=== PATIENT | male | born 1955 | race African-American/Black ===

== ENCOUNTER 2017-07-08 13:21 | Emergency (ER) | payer MEDICAID, OTHER ==
[2017-07-08] MEDS ORDERED: Furosemide 40 MG TAB ONE (14:51)
== END 2017-07-08 15:00 | disposition home or self-care (01) ==
LOC: MADERS 13:21
DX: E87.70 Fluid overload, unspecified (principal); I50.9 Heart failure, unspecified; I48.91 Unspecified atrial fibrillation; Z86.73 Personal history of transient ischemic attack (TIA), and cerebral infarction without residual deficits; Z79.899 Other long term (current) drug therapy; Z79.82 Long term (current) use of aspirin; Z79.01 Long term (current) use of anticoagulants
CPT/HCPCS: 99283

== ENCOUNTER 2017-11-05 09:20 | Outpatient (CLI) | payer OTHER ==
[2017-11-05 10:28] LABS: INR-International Normal Ratio 1.4; Prothrombin Time 17.5 SEC (12.0-14.7)
== END 2017-11-05 09:21 | disposition home or self-care (01) ==
LOC: MADLABBHPM 09:20
PROVIDERS: ATTEND Family Medicine
DX: Z51.81 Encounter for therapeutic drug level monitoring (principal); I48.2 Chronic atrial fibrillation; Z79.01 Long term (current) use of anticoagulants
CPT/HCPCS: 36415; 85610

== ENCOUNTER 2017-11-05 20:34 | Emergency (ER) | payer OTHER ==
[2017-11-05] MEDS ORDERED: Metoprolol Tartrate 50 MG TAB ONE (21:13)
== END 2017-11-05 21:17 | disposition home or self-care (01) ==
LOC: MADERS 20:34
DX: I11.0 Hypertensive heart disease with heart failure (principal); I50.9 Heart failure, unspecified; E78.5 Hyperlipidemia, unspecified; I48.91 Unspecified atrial fibrillation; E11.9 Type 2 diabetes mellitus without complications; Z79.82 Long term (current) use of aspirin; Z79.01 Long term (current) use of anticoagulants; Z79.899 Other long term (current) drug therapy; Z79.84 Long term (current) use of oral hypoglycemic drugs
CPT/HCPCS: 99283

== ENCOUNTER 2017-11-06 21:18 | Emergency (ER) | payer OTHER | END 2017-11-06 21:47 | disposition home or self-care (01) | LOC: MADERS 21:18 | DX: I11.0 Hypertensive heart disease with heart failure (principal); I50.9 Heart failure, unspecified; E78.5 Hyperlipidemia, unspecified; Z86.73 Personal history of transient ischemic attack (TIA), and cerebral infarction without residual deficits; I48.91 Unspecified atrial fibrillation; E11.9 Type 2 diabetes mellitus without complications; Z79.899 Other long term (current) drug therapy; Z79.01 Long term (current) use of anticoagulants; Z79.82 Long term (current) use of aspirin | CPT/HCPCS: 99283 ==

== ENCOUNTER 2017-11-13 08:39 | Outpatient (CLI) | payer OTHER ==
[2017-11-13 10:56] LABS: INR-International Normal Ratio 2.5; Prothrombin Time 28.1 SEC (12.0-14.7)
== END 2017-11-13 08:40 | disposition home or self-care (01) ==
LOC: MADLABBHPM 08:39
PROVIDERS: ATTEND Family Medicine
DX: Z51.81 Encounter for therapeutic drug level monitoring (principal); I48.2 Chronic atrial fibrillation; Z79.01 Long term (current) use of anticoagulants
CPT/HCPCS: 36415; 85610

== ENCOUNTER 2017-11-20 09:12 | Outpatient (CLI) | payer MEDICAID, OTHER ==
[2017-11-20 17:05] LABS: INR-International Normal Ratio 2.1; Prothrombin Time 24.2 SEC (12.0-14.7)
== END 2017-11-20 09:13 | disposition home or self-care (01) ==
LOC: MADLABBHPM 09:12
PROVIDERS: ATTEND Family Medicine
DX: Z51.81 Encounter for therapeutic drug level monitoring (principal); Z79.01 Long term (current) use of anticoagulants
CPT/HCPCS: 36415; 85610

== ENCOUNTER 2017-12-11 11:06 | Outpatient (CLI) | payer OTHER ==
[2017-12-11 12:05] LABS: INR-International Normal Ratio 2.6
== END 2017-12-11 11:07 | disposition home or self-care (01) ==
LOC: MADLABBHPM 11:06
PROVIDERS: ATTEND Family Medicine
DX: Z51.81 Encounter for therapeutic drug level monitoring (principal); I48.2 Chronic atrial fibrillation; Z79.01 Long term (current) use of anticoagulants
CPT/HCPCS: 36415; 85610

== ENCOUNTER 2018-01-15 08:13 | Outpatient (CLI) | payer OTHER ==
[2018-01-15 08:34] LABS: INR-International Normal Ratio 2.6; Prothrombin Time 28.1 SEC (12.0-14.7)
== END 2018-01-15 08:14 | disposition home or self-care (01) ==
LOC: MADLABBHPM 08:13
PROVIDERS: ATTEND Family Medicine
DX: Z51.81 Encounter for therapeutic drug level monitoring (principal); I48.2 Chronic atrial fibrillation; Z79.01 Long term (current) use of anticoagulants
CPT/HCPCS: 36415; 85610

== ENCOUNTER 2018-02-01 08:19 | Outpatient (CLI) | payer OTHER ==
[2018-02-01 08:51] LABS: INR-International Normal Ratio 2.6; Prothrombin Time 27.9 SEC (12.0-14.7)
== END 2018-02-01 08:20 | disposition home or self-care (01) ==
LOC: MADLAB 08:19
PROVIDERS: ATTEND Family Medicine
DX: Z51.81 Encounter for therapeutic drug level monitoring (principal); I48.2 Chronic atrial fibrillation; Z79.01 Long term (current) use of anticoagulants
CPT/HCPCS: 36415; 85610

== ENCOUNTER 2018-02-20 14:20 | Outpatient (CLI) | payer OTHER ==
[2018-02-20 14:53] LABS: INR-International Normal Ratio 1.9; Prothrombin Time 22.1 SEC (12.0-14.7)
== END 2018-02-20 14:21 | disposition home or self-care (01) ==
LOC: MADLAB 14:20
PROVIDERS: ATTEND Family Medicine
DX: Z51.81 Encounter for therapeutic drug level monitoring (principal); I46.2 Cardiac arrest due to underlying cardiac condition; Z79.01 Long term (current) use of anticoagulants
CPT/HCPCS: 36415; 85610

== ENCOUNTER 2018-03-14 12:21 | Outpatient (CLI) | payer OTHER ==
[2018-03-14 12:52] LABS: INR-International Normal Ratio 3.1; Prothrombin Time 31.9 SEC (12.0-14.7)
== END 2018-03-14 12:22 | disposition home or self-care (01) ==
LOC: MADLABBHPM 12:21
PROVIDERS: ATTEND Family Medicine
DX: Z51.81 Encounter for therapeutic drug level monitoring (principal); I48.2 Chronic atrial fibrillation; Z79.01 Long term (current) use of anticoagulants
CPT/HCPCS: 36415; 85610

== ENCOUNTER 2018-03-21 11:36 | Outpatient (CLI) | payer OTHER ==
[2018-03-21 12:13] LABS: INR-International Normal Ratio 2.6; Prothrombin Time 28.1 SEC (12.0-14.7)
== END 2018-03-21 11:37 | disposition home or self-care (01) ==
LOC: MADLAB 11:36
PROVIDERS: ATTEND Family Medicine
DX: Z51.81 Encounter for therapeutic drug level monitoring (principal); I46.2 Cardiac arrest due to underlying cardiac condition; Z79.01 Long term (current) use of anticoagulants
CPT/HCPCS: 36415; 85610

== ENCOUNTER 2018-04-26 08:21 | Outpatient (CLI) | payer OTHER ==
[2018-04-26 08:40] LABS: INR-International Normal Ratio 2.7; Prothrombin Time 28.5 SEC (12.0-14.7)
== END 2018-04-26 08:22 | disposition home or self-care (01) ==
LOC: MADLABBHPM 08:21
PROVIDERS: ATTEND Family Medicine
DX: Z51.81 Encounter for therapeutic drug level monitoring (principal); I48.2 Chronic atrial fibrillation; Z79.01 Long term (current) use of anticoagulants
CPT/HCPCS: 36415; 85610

== ENCOUNTER 2018-05-14 10:25 | Outpatient (CLI) | payer OTHER ==
[2018-05-14 12:18] LABS: INR-International Normal Ratio 2.4; Prothrombin Time 26.5 SEC (12.0-14.7)
[2018-05-14 12:38] LABS: ALT (SGPT) 20 U/L (8-55); AST (SGOT) 22 U/L (5-34); Albumin 3.9 g/dL (3.4-4.8); Alkaline Phosphatase 101 U/L (40-150); Bilirubin, Direct 0.5 mg/dL (0.1-0.3); Bilirubin, Total 2.5 mg/dL (0.2-1.2); Protein, Total 7.8 g/dL (5.8-8.1)
== END 2018-05-14 10:26 | disposition home or self-care (01) ==
LOC: MADLABBHPM 10:25
PROVIDERS: ATTEND Family Medicine
DX: R94.5 Abnormal results of liver function studies (principal); I48.2 Chronic atrial fibrillation; Z79.01 Long term (current) use of anticoagulants
CPT/HCPCS: 36415; 80076; 85610

== ENCOUNTER 2018-06-10 12:11 | Outpatient (CLI) | payer OTHER ==
[2018-06-10 12:38] LABS: INR-International Normal Ratio 2.6; Prothrombin Time 27.9 SEC (12.0-14.7)
== END 2018-06-10 12:12 | disposition home or self-care (01) ==
LOC: MADLABBHPM 12:11
PROVIDERS: ATTEND Family Medicine
DX: Z51.81 Encounter for therapeutic drug level monitoring (principal); I48.2 Chronic atrial fibrillation; Z79.01 Long term (current) use of anticoagulants
CPT/HCPCS: 36415; 85610

== ENCOUNTER 2018-07-18 09:04 | Outpatient (CLI) | payer OTHER ==
[2018-07-18 09:38] LABS: Prothrombin Time 30.9 SEC (12.0-14.7)
== END 2018-07-18 09:05 | disposition home or self-care (01) ==
LOC: MADLABBHPM 09:04
PROVIDERS: ATTEND Family Medicine
DX: Z51.81 Encounter for therapeutic drug level monitoring (principal); I48.2 Chronic atrial fibrillation; Z79.01 Long term (current) use of anticoagulants
CPT/HCPCS: 36415; 85610

== ENCOUNTER 2018-07-25 09:46 | Outpatient (CLI) | payer OTHER ==
[2018-07-25 10:17] LABS: INR-International Normal Ratio 2.3; Prothrombin Time 25.7 SEC (12.0-14.7)
== END 2018-07-25 09:47 | disposition home or self-care (01) ==
LOC: MADLAB 09:46
PROVIDERS: ATTEND Family Medicine
DX: Z51.81 Encounter for therapeutic drug level monitoring (principal); I48.2 Chronic atrial fibrillation; Z79.01 Long term (current) use of anticoagulants
CPT/HCPCS: 36415; 85610

== ENCOUNTER 2018-08-10 05:21 | Emergency (ER) | payer OTHER ==
[2018-08-10] MEDS ORDERED: Furosemide 20 MG/2 ML VIAL ONE (06:07)
[2018-08-10] MEDS ORDERED: Furosemide 40 MG/4 ML VIAL ONE (06:07)
[2018-08-10 06:11] LABS: #Basophils 0.2 thou/uL (0.0-0.2); #Eosinphils 0.2 thou/uL (0.0-0.7); #Lymphocytes 0.9 thou/uL (1.20-3.40); #Monocytes 0.9 thou/uL (0.11-0.59); #Neutrophils 5.2 thou/uL (1.40-6.50); %Basophils 2.9 % (0.0-1.0); %Eosinophils 3.1 % (0.0-10.0); %Lymphocytes 11.9 % (21.0-51.0); %Monocytes 11.6 % (0.0-10.0); %Neutrophils 70.4 % (42.0-75.0); Mean Corpuscular HGB CONC 30.8 g/dL (32.0-36.0); Mean Corpuscular Hemoglobin 28.7 pg (27.0-31.0); Mean Corpuscular Volume 93.2 fL (78.0-98.0); Mean Platelet Volume 6.2 fL (7.4-10.4); Platelet Count 200 thou/uL (130-400); RBC Distribution Width 15.9 % (11.5-14.5); Red Blood Cell (RBC) Count 4.87 mill/uL (4.70-6.10); White Blood Cell (WBC) Count 7.4 thou/uL (4.8-10.8)
[2018-08-10 06:33] LABS: ALT (SGPT) 28 U/L (8-55); AST (SGOT) 35 U/L (5-34); Alkaline Phosphatase 155 U/L (40-150); Anion Gap 15 mmol/L (10-20); BUN (Urea Nitrogen) 19 mg/dL (8.4-25.7); Bilirubin, Total 3.3 mg/dL (0.2-1.2); Calc. Creatinine Clearance 0 mL/min (70-130); Calcium 9.2 mg/dL (7.8-10.44); Carbon Dioxide 25 mmol/L (23-31); Chloride 106 mmol/L (98-107); Estimated GFR-MDRD Greater than 90; Glucose 78 mg/dL (80-115); Potassium 4.1 mmol/L (3.5-5.1)
[2018-08-10 06:36] LABS: Sodium 142 mmol/L (136-145)
--- NOTE | 2018-08-10 07:40 | RAD ---
CHEST 1 VIEW: Date: 08/10/18 INDICATION: History of cough. COMPARISON: Prior study dated 12/12/14. FINDINGS: There is stable cardiomegaly. No definite consolidation, pleural effusion, or pneumothorax is evident . No acute osseous abnormality is evident. IMPRESSION: Stable cardiomegaly. POS: [facility]
== END 2018-08-10 07:38 | disposition home or self-care (01) ==
LOC: MADERS 05:21
DX: I11.0 Hypertensive heart disease with heart failure (principal); I50.9 Heart failure, unspecified; E11.9 Type 2 diabetes mellitus without complications; E78.5 Hyperlipidemia, unspecified; Z79.82 Long term (current) use of aspirin; Z79.899 Other long term (current) drug therapy; Z79.01 Long term (current) use of anticoagulants
CPT/HCPCS: 71045; 80053; 83880; 84484; 85025; 93005; 96374; J1940

== ENCOUNTER 2018-08-14 11:22 | Outpatient (CLI) | payer OTHER ==
[2018-08-14 11:54] LABS: INR-International Normal Ratio 2.7; Prothrombin Time 28.9 SEC (12.0-14.7)
== END 2018-08-14 11:23 | disposition home or self-care (01) ==
LOC: MADLABBHPM 11:22
PROVIDERS: ATTEND Family Medicine
DX: Z51.81 Encounter for therapeutic drug level monitoring (principal); I48.2 Chronic atrial fibrillation; Z79.01 Long term (current) use of anticoagulants
CPT/HCPCS: 36415; 85610

== ENCOUNTER 2018-09-09 08:54 | Outpatient (CLI) | payer OTHER ==
[2018-09-09 09:43] LABS: ALT (SGPT) 41 U/L (8-55); AST (SGOT) 32 U/L (5-34); Albumin 4.1 g/dL (3.4-4.8); Alkaline Phosphatase 115 U/L (40-150); Anion Gap 13 mmol/L (10-20); BUN (Urea Nitrogen) 21 mg/dL (8.4-25.7); Bilirubin, Total 1.8 mg/dL (0.2-1.2); Calc. Creatinine Clearance 0 mL/min (70-130); Calcium 9.9 mg/dL (7.8-10.44); Carbon Dioxide 27 mmol/L (23-31); Chloride 105 mmol/L (98-107); Estimated GFR-MDRD Greater than 90; Globulin 4.5 g/dL (2.4-3.5); Glucose 115 mg/dL (80-115); Potassium 4.8 mmol/L (3.5-5.1); Protein, Total 8.6 g/dL (5.8-8.1); Sodium 140 mmol/L (136-145)
[2018-09-09 09:59] LABS: INR-International Normal Ratio 2.1; Prothrombin Time 23.9 SEC (12.0-14.7)
[2018-09-09 16:55] LABS: Hemoglobin A1c 7.3 % (4.0-6.0)
== END 2018-09-09 08:55 | disposition home or self-care (01) ==
LOC: MADLABBHPM 08:54
PROVIDERS: ATTEND Family Medicine
DX: Z51.81 Encounter for therapeutic drug level monitoring (principal); E11.65 Type 2 diabetes mellitus with hyperglycemia; I50.9 Heart failure, unspecified; I48.2 Chronic atrial fibrillation; Z79.01 Long term (current) use of anticoagulants
CPT/HCPCS: 36415; 80053; 83036; 84439; 84443; 85610

== ENCOUNTER 2018-10-08 08:40 | Outpatient (CLI) | payer OTHER ==
[2018-10-08 10:07] LABS: INR-International Normal Ratio 2.3; Prothrombin Time 25.6 SEC (12.0-14.7)
== END 2018-10-08 08:41 | disposition home or self-care (01) ==
LOC: MADLABBHPM 08:40
PROVIDERS: ATTEND Family Medicine
DX: Z51.81 Encounter for therapeutic drug level monitoring (principal); I48.2 Chronic atrial fibrillation; Z79.01 Long term (current) use of anticoagulants
CPT/HCPCS: 36415; 85610

== ENCOUNTER 2018-11-05 08:34 | Outpatient (CLI) | payer OTHER ==
[2018-11-05 10:13] LABS: INR-International Normal Ratio 2.5; Prothrombin Time 27.2 SEC (12.0-14.7)
== END 2018-11-05 08:35 | disposition home or self-care (01) ==
LOC: MADLABBHPM 08:34
PROVIDERS: ATTEND Family Medicine
DX: Z51.81 Encounter for therapeutic drug level monitoring (principal); I48.2 Chronic atrial fibrillation; Z79.01 Long term (current) use of anticoagulants
CPT/HCPCS: 36415; 85610

== ENCOUNTER 2018-12-06 07:59 | Outpatient (CLI) | payer OTHER ==
[2018-12-06 08:42] LABS: INR-International Normal Ratio 3.2; Prothrombin Time 32.5 SEC (12.0-14.7)
== END 2018-12-06 08:00 | disposition home or self-care (01) ==
LOC: MADLABBHPM 07:59
PROVIDERS: ATTEND Family Medicine
DX: Z51.81 Encounter for therapeutic drug level monitoring (principal); I48.2 Chronic atrial fibrillation; Z79.01 Long term (current) use of anticoagulants
CPT/HCPCS: 36415; 85610

== ENCOUNTER 2018-12-12 11:46 | Outpatient (CLI) | payer OTHER ==
[2018-12-12 12:06] LABS: INR-International Normal Ratio 2.7
[2018-12-12 12:16] LABS: ALT (SGPT) 17 U/L (8-55); AST (SGOT) 18 U/L (5-34); Alkaline Phosphatase 82 U/L (40-150); Anion Gap 14 mmol/L (10-20); BUN (Urea Nitrogen) 15 mg/dL (8.4-25.7); Bilirubin, Total 2.6 mg/dL (0.2-1.2); Calc. Creatinine Clearance 0 mL/min (70-130); Calcium 9.3 mg/dL (7.8-10.44); Carbon Dioxide 23 mmol/L (23-31); Chloride 106 mmol/L (98-107); Estimated GFR-MDRD Greater than 90; Globulin 4.1 g/dL (2.4-3.5); Glucose 129 mg/dL (80-115); Potassium 4.4 mmol/L (3.5-5.1); Protein, Total 8.1 g/dL (5.8-8.1); Sodium 139 mmol/L (136-145)
[2018-12-12 17:00] LABS: Hemoglobin A1c 7.3 % (4.0-6.0)
== END 2018-12-12 11:47 | disposition home or self-care (01) ==
LOC: MADLABBHPM 11:46
PROVIDERS: ATTEND Family Medicine
DX: E11.65 Type 2 diabetes mellitus with hyperglycemia (principal); Z79.01 Long term (current) use of anticoagulants
CPT/HCPCS: 36415; 80053; 83036; 85610

== ENCOUNTER 2019-01-14 10:32 | Outpatient (CLI) | payer OTHER ==
[2019-01-14 11:18] LABS: INR-International Normal Ratio 3.2; Prothrombin Time 32.8 SEC (12.0-14.7)
== END 2019-01-14 10:33 | disposition home or self-care (01) ==
LOC: MADLABBHPM 10:32
PROVIDERS: ATTEND Family Medicine
DX: Z51.81 Encounter for therapeutic drug level monitoring (principal); Z79.01 Long term (current) use of anticoagulants
CPT/HCPCS: 36415; 85610

== ENCOUNTER 2019-01-20 10:02 | Outpatient (CLI) | payer OTHER ==
[2019-01-20 11:06] LABS: INR-International Normal Ratio 1.8; Prothrombin Time 21.2 SEC (12.0-14.7)
== END 2019-01-20 10:03 | disposition home or self-care (01) ==
LOC: MADLABBHPM 10:02
PROVIDERS: ATTEND Family Medicine
DX: Z51.81 Encounter for therapeutic drug level monitoring (principal); Z79.01 Long term (current) use of anticoagulants
CPT/HCPCS: 36415; 85610

== ENCOUNTER 2019-03-17 07:44 | Outpatient (CLI) | payer OTHER ==
[2019-03-17 08:24] LABS: INR-International Normal Ratio 2.6; Prothrombin Time 27.7 SEC (12.0-14.7)
== END 2019-03-17 07:45 | disposition home or self-care (01) ==
LOC: MADLABBHPM 07:44
PROVIDERS: ATTEND Family Medicine
DX: Z51.81 Encounter for therapeutic drug level monitoring (principal); Z79.01 Long term (current) use of anticoagulants
CPT/HCPCS: 36415; 85610

== ENCOUNTER 2019-04-09 12:40 | Outpatient (CLI) | payer OTHER ==
[2019-04-09 12:58] LABS: INR-International Normal Ratio 2.1
== END 2019-04-09 12:41 | disposition home or self-care (01) ==
LOC: MADLABBHPM 12:40
PROVIDERS: ATTEND Family Medicine
DX: Z51.81 Encounter for therapeutic drug level monitoring (principal); Z79.01 Long term (current) use of anticoagulants
CPT/HCPCS: 36415; 85610

== ENCOUNTER 2019-05-07 11:30 | Outpatient (CLI) | payer OTHER ==
[2019-05-07 11:55] LABS: INR-International Normal Ratio 2.2; Prothrombin Time 24.5 SEC (12.0-14.7)
== END 2019-05-07 11:31 | disposition home or self-care (01) ==
LOC: MADLABBHPM 11:30
PROVIDERS: ATTEND Family Medicine
DX: Z51.81 Encounter for therapeutic drug level monitoring (principal); Z79.01 Long term (current) use of anticoagulants
CPT/HCPCS: 36415; 85610

== ENCOUNTER 2019-05-28 11:18 | Outpatient (CLI) | payer OTHER ==
[2019-05-28 11:42] LABS: INR-International Normal Ratio 2.4; Prothrombin Time 26.2 SEC (12.0-14.7)
== END 2019-05-28 11:19 | disposition home or self-care (01) ==
LOC: MADLABBHPM 11:18
PROVIDERS: ATTEND Family Medicine
DX: Z51.81 Encounter for therapeutic drug level monitoring (principal); Z79.01 Long term (current) use of anticoagulants
CPT/HCPCS: 36415; 85610

== ENCOUNTER 2019-06-16 10:54 | Outpatient (CLI) | payer OTHER ==
[2019-06-16 11:22] LABS: INR-International Normal Ratio 2.2; Prothrombin Time 24.2 SEC (12.0-14.7)
[2019-06-16 11:27] LABS: Anion Gap 16 mmol/L (10-20); BUN (Urea Nitrogen) 21 mg/dL (8.4-25.7); Calc. Creatinine Clearance 0 mL/min (70-130); Calcium 9.2 mg/dL (7.8-10.44); Carbon Dioxide 22 mmol/L (23-31); Chloride 101 mmol/L (98-107); Estimated GFR-MDRD 70; Glucose 525 mg/dL (80-115); Potassium 4.8 mmol/L (3.5-5.1); Sodium 134 mmol/L (136-145)
== END 2019-06-16 10:55 | disposition home or self-care (01) ==
LOC: MADLABBHPM 10:54
PROVIDERS: ATTEND Family Medicine
DX: E87.1 Hypo-osmolality and hyponatremia (principal)
CPT/HCPCS: 36415; 80048; 85610

== ENCOUNTER 2019-07-14 11:49 | Outpatient (CLI) | payer OTHER ==
[2019-07-14 12:42] LABS: Prothrombin Time 22.6 SEC (12.0-14.7)
== END 2019-07-14 11:50 | disposition home or self-care (01) ==
LOC: MADLABBHPM 11:49
PROVIDERS: ATTEND Family Medicine
DX: Z51.81 Encounter for therapeutic drug level monitoring (principal); Z79.01 Long term (current) use of anticoagulants
CPT/HCPCS: 85610

== ENCOUNTER 2019-08-12 11:57 | Outpatient (CLI) | payer OTHER ==
[2019-08-12 12:21] LABS: INR-International Normal Ratio 2.8; Prothrombin Time 28.9 SEC (12.0-14.7)
== END 2019-08-12 11:58 | disposition home or self-care (01) ==
LOC: MADLABBHPM 11:57
PROVIDERS: ATTEND Family Medicine
DX: Z51.81 Encounter for therapeutic drug level monitoring (principal); Z79.01 Long term (current) use of anticoagulants
CPT/HCPCS: 36415; 85610

== ENCOUNTER 2019-09-11 12:44 | Outpatient (CLI) | payer OTHER ==
[2019-09-11 13:22] LABS: INR-International Normal Ratio 2.7; Prothrombin Time 28.4 SEC (12.0-14.7)
== END 2019-09-11 12:45 | disposition home or self-care (01) ==
LOC: MADLAB 12:44
PROVIDERS: ATTEND Family Medicine
DX: Z51.81 Encounter for therapeutic drug level monitoring (principal); Z79.01 Long term (current) use of anticoagulants
CPT/HCPCS: 36415; 85610

== ENCOUNTER 2020-01-12 16:48 | Emergency (ER) | payer OTHER | END 2020-01-12 18:15 | disposition home or self-care (01) | LOC: MADERS 16:48 | DX: E11.649 Type 2 diabetes mellitus with hypoglycemia without coma (principal); E78.5 Hyperlipidemia, unspecified; I48.91 Unspecified atrial fibrillation; I11.0 Hypertensive heart disease with heart failure; I50.9 Heart failure, unspecified; Z86.73 Personal history of transient ischemic attack (TIA), and cerebral infarction without residual deficits; Z79.82 Long term (current) use of aspirin; Z79.01 Long term (current) use of anticoagulants; Z79.899 Other long term (current) drug therapy | CPT/HCPCS: 36416; 99283 ==

== ENCOUNTER 2021-03-14 06:23 | Outpatient (CLI) | payer OTHER ==
[2021-03-14 07:06] LABS: INR-International Normal Ratio 1.2; Prothrombin Time 15.4 sec (12.0-14.7)
== END 2021-03-14 06:24 | disposition home or self-care (01) ==
LOC: MADLAB 06:23
PROVIDERS: ATTEND Family Medicine
DX: Z51.81 Encounter for therapeutic drug level monitoring (principal); Z79.01 Long term (current) use of anticoagulants
CPT/HCPCS: 36415; 85610

== ENCOUNTER 2021-03-21 08:51 | Outpatient (CLI) | payer OTHER ==
[2021-03-21 09:17] LABS: INR-International Normal Ratio 1.2; Prothrombin Time 15.1 sec (12.0-14.7)
== END 2021-03-21 08:52 | disposition home or self-care (01) ==
LOC: MADLAB 08:51
PROVIDERS: ATTEND Family Medicine
DX: Z51.81 Encounter for therapeutic drug level monitoring (principal); I48.0 Paroxysmal atrial fibrillation; Z79.01 Long term (current) use of anticoagulants
CPT/HCPCS: 36415; 85610

== ENCOUNTER 2021-07-28 00:06 | Emergency (ER) | payer MEDICARE ==
[2021-07-28] MEDS ORDERED: Oxymetazoline HCl 0.05% (30 ML BOT) ONE (00:15)
[2021-07-28] MEDS ORDERED: Amoxicillin/Potassium Clav 875 MG TAB ONE (00:53)
== END 2021-07-28 01:05 | disposition home or self-care (01) ==
LOC: MADERS 00:06
DX: R04.0 Epistaxis (principal); E78.5 Hyperlipidemia, unspecified; I48.91 Unspecified atrial fibrillation; E11.9 Type 2 diabetes mellitus without complications; I11.0 Hypertensive heart disease with heart failure; I50.9 Heart failure, unspecified; Z86.73 Personal history of transient ischemic attack (TIA), and cerebral infarction without residual deficits; Z79.82 Long term (current) use of aspirin; Z79.899 Other long term (current) drug therapy
CPT/HCPCS: 30903

== ENCOUNTER 2021-07-28 11:49 | Outpatient (CLI) | payer MEDICARE ==
[2021-07-28 13:34] LABS: INR-International Normal Ratio 1.6; Prothrombin Time 19.3 sec (12.0-14.7)
== END 2021-07-28 11:50 | disposition home or self-care (01) ==
LOC: MADLAB 11:49
PROVIDERS: ATTEND Family Medicine
DX: I48.0 Paroxysmal atrial fibrillation (principal)
CPT/HCPCS: 36415; 85610

== ENCOUNTER 2021-08-17 08:42 | Outpatient (CLI) | payer MEDICARE, OTHER ==
[2021-08-17 10:59] LABS: INR-International Normal Ratio 1.8; Prothrombin Time 21.1 sec (12.0-14.7)
== END 2021-08-17 08:43 | disposition home or self-care (01) ==
LOC: MADLAB 08:42
PROVIDERS: ATTEND Family Medicine
DX: I48.0 Paroxysmal atrial fibrillation (principal)
CPT/HCPCS: 36415; 85610

== ENCOUNTER 2021-08-22 11:36 | Outpatient (CLI) | payer MEDICARE, OTHER ==
[2021-08-22 12:03] LABS: INR-International Normal Ratio 1.8; Prothrombin Time 21.3 sec (12.0-14.7)
== END 2021-08-22 11:37 | disposition home or self-care (01) ==
LOC: MADLAB 11:36
PROVIDERS: ATTEND Family Medicine
DX: I48.0 Paroxysmal atrial fibrillation (principal)
CPT/HCPCS: 85610

== ENCOUNTER 2021-11-11 08:08 | Outpatient (CLI) | payer MEDICARE, OTHER ==
[2021-11-11 09:03] LABS: INR-International Normal Ratio 1.8
[2021-11-11 09:18] LABS: ALT (SGPT) 19 U/L (8-55); AST (SGOT) 21 U/L (5-34); Albumin 4.1 g/dL (3.4-4.8); Alkaline Phosphatase 71 U/L (40-110); Anion Gap 13 mmol/L (10-20); BUN (Urea Nitrogen) 14 mg/dL (8.4-25.7); Bilirubin, Total 1.5 mg/dL (0.2-1.2); Calc. Creatinine Clearance 0 mL/min (70-130); Calcium 9.6 mg/dL (7.8-10.44); Carbon Dioxide 26 mmol/L (23-31); Cardiac Risk 2.7 (Less than 4.5); Chloride 101 mmol/L (98-107); Cholesterol 75 mg/dl (< 200 Desired); Globulin 4.5 g/dL (2.4-3.5); Glucose 110 mg/dL (80-115); HDL Cholesterol 28 mg/dL (>60 Neg Risk); LDL Cholesterol, Calculated 37 mg/dL; Potassium 4.3 mmol/L (3.5-5.1); Protein, Total 8.6 g/dL (5.8-8.1); Sodium 136 mmol/L (136-145); Triglycerides 50 mg/dL (Less than 150)
[2021-11-11 09:28] LABS: #Basophils 0.2 thou/uL (0.0-0.2); #Eosinphils 0.2 thou/uL (0.0-0.7); #Lymphocytes 1.5 thou/uL (1.20-3.40); #Monocytes 0.8 thou/uL (0.11-0.59); #Neutrophils 4.1 thou/uL (1.40-6.50); %Basophils 2.9 % (0.0-1.0); %Eosinophils 3.2 % (0.0-10.0); %Lymphocytes 21.7 % (21.0-51.0); %Neutrophils 60.3 % (42.0-75.0); Hemoglobin 13.5 g/dL (14.0-18.0); Mean Corpuscular HGB CONC 30.9 g/dL (32.0-36.0); Mean Corpuscular Hemoglobin 29.1 pg (27.0-31.0); Mean Corpuscular Volume 94.2 fL (78.0-98.0); Mean Platelet Volume 7.4 fL (7.4-10.4); Platelet Count 179 thou/uL (130-400); RBC Distribution Width 13.3 % (11.5-14.5); Red Blood Cell (RBC) Count 4.64 mill/uL (4.70-6.10); White Blood Cell (WBC) Count 6.8 thou/uL (4.8-10.8)
[2021-11-11 17:04] LABS: Hemoglobin A1c 6.8 % (4.0-6.0)
== END 2021-11-11 08:09 | disposition home or self-care (01) ==
LOC: MADLAB 08:08
PROVIDERS: ATTEND Family Medicine
DX: Z51.81 Encounter for therapeutic drug level monitoring (principal); E78.2 Mixed hyperlipidemia; D75.89 Other specified diseases of blood and blood-forming organs; D64.9 Anemia, unspecified; E11.9 Type 2 diabetes mellitus without complications; Z79.01 Long term (current) use of anticoagulants
CPT/HCPCS: 36415; 80053; 80061; 82607; 82746; 83036; 85025; 85610

== ENCOUNTER 2022-02-09 09:55 | Outpatient (CLI) | payer OTHER ==
[2022-02-09 10:36] LABS: INR-International Normal Ratio 1.8; Prothrombin Time 20.8 sec (12.0-14.7)
[2022-02-09 10:51] LABS: ALT (SGPT) 48 U/L (8-55); AST (SGOT) 30 U/L (5-34); Albumin 4.2 g/dL (3.4-4.8); Alkaline Phosphatase 83 U/L (40-110); Anion Gap 14 mmol/L (10-20); BUN (Urea Nitrogen) 21 mg/dL (8.4-25.7); Calc. Creatinine Clearance 0 mL/min (70-130); Calcium 9.8 mg/dL (7.8-10.44); Carbon Dioxide 25 mmol/L (23-31); Chloride 104 mmol/L (98-107); Estimated GFR 63; Globulin 4.7 g/dL (2.4-3.5); Glucose 162 mg/dL (80-115); Potassium 4.9 mmol/L (3.5-5.1); Protein, Total 8.9 g/dL (5.8-8.1); Sodium 138 mmol/L (136-145)
[2022-02-09 15:50] LABS: Hemoglobin A1c 8.4 % (4.0-6.0)
== END 2022-02-09 09:56 | disposition home or self-care (01) ==
LOC: MADLAB 09:55
PROVIDERS: ATTEND Family Medicine
DX: Z51.81 Encounter for therapeutic drug level monitoring (principal); I11.0 Hypertensive heart disease with heart failure; I50.9 Heart failure, unspecified; E11.9 Type 2 diabetes mellitus without complications; Z79.01 Long term (current) use of anticoagulants
CPT/HCPCS: 36415; 80053; 83036; 85610

== ENCOUNTER 2022-03-23 15:38 | Outpatient (CLI) | payer OTHER ==
[2022-03-23 16:40] LABS: INR-International Normal Ratio 2.7; Prothrombin Time 29.1 sec (12.0-14.7)
== END 2022-03-23 15:39 | disposition home or self-care (01) ==
LOC: MADLAB 15:38
PROVIDERS: ATTEND Family Medicine
DX: Z51.81 Encounter for therapeutic drug level monitoring (principal); Z79.01 Long term (current) use of anticoagulants
CPT/HCPCS: 36415; 85610

== ENCOUNTER 2022-04-20 10:50 | Outpatient (CLI) | payer OTHER ==
[2022-04-20 11:28] LABS: INR-International Normal Ratio 2.7; Prothrombin Time 29.4 sec (12.0-14.7)
== END 2022-04-20 10:51 | disposition home or self-care (01) ==
LOC: MADLAB 10:50
PROVIDERS: ATTEND Family Medicine
DX: Z79.01 Long term (current) use of anticoagulants (principal); I11.0 Hypertensive heart disease with heart failure; E11.9 Type 2 diabetes mellitus without complications
CPT/HCPCS: 36415; 85610

== ENCOUNTER 2022-06-12 13:09 | Outpatient (CLI) | payer OTHER ==
[2022-06-12 13:47] LABS: INR-International Normal Ratio 3.2; Prothrombin Time 34.5 sec (12.0-14.7)
== END 2022-06-12 13:10 | disposition home or self-care (01) ==
LOC: MADLAB 13:09
PROVIDERS: ATTEND Family Medicine
DX: Z51.81 Encounter for therapeutic drug level monitoring (principal); Z79.01 Long term (current) use of anticoagulants
CPT/HCPCS: 36415; 85610

== ENCOUNTER 2023-06-13 15:29 | Outpatient (CLI) | payer OTHER ==
[2023-06-13 15:51] LABS: INR-International Normal Ratio 2.4; Prothrombin Time 27.6 sec (12.0-14.7)
== END 2023-06-13 15:30 | disposition home or self-care (01) ==
LOC: MADLABBHPM 15:29
PROVIDERS: ATTEND Family Medicine
DX: Z51.81 Encounter for therapeutic drug level monitoring (principal); Z79.01 Long term (current) use of anticoagulants
CPT/HCPCS: 85610

== ENCOUNTER 2023-08-13 07:00 | Emergency (ER) | payer OTHER ==
[2023-08-13] MEDS ORDERED: diphenhydrAMINE 25 MG CAP ONE ×2 (07:49→07:56)
[2023-08-13] MEDS ORDERED: methylPREDNISolone Acetate 80 mg (1 mL) VIAL ONE (07:49)
== END 2023-08-13 08:11 | disposition home or self-care (01) ==
LOC: MADERS 07:00
DX: L23.9 Allergic contact dermatitis, unspecified cause (principal); E78.5 Hyperlipidemia, unspecified; I11.0 Hypertensive heart disease with heart failure; I50.9 Heart failure, unspecified; E11.9 Type 2 diabetes mellitus without complications; I48.91 Unspecified atrial fibrillation; Z79.82 Long term (current) use of aspirin; Z79.899 Other long term (current) drug therapy; Z79.01 Long term (current) use of anticoagulants
CPT/HCPCS: 96372; 99282; J1040